=== PATIENT | male | born 1975 | race Caucasian/White ===

== ENCOUNTER 2024-09-15 16:06 | Emergency (ER) | payer MEDICAID ==
[~2024-09-15] VITALS: Ht 177.8 cm; Wt 104.0 kg
[2024-09-15 16:09] VITALS: O2SAT 98
[2024-09-15 16:20] VITALS: BP 152/91; PULSE 77; RESP 16; TEMP 36.5; O2SAT 97
[2024-09-15] MEDS ORDERED: AMOX1TAB16 MT (19:20)
[2024-09-15] MEDS ORDERED: CHLO473M2 MT (19:20)
== END 2024-09-15 20:30 | disposition home or self-care (01) ==
LOC: ER 16:06
DX: K04.7 Periapical abscess without sinus (principal); E78.00 Pure hypercholesterolemia, unspecified; I10 Essential (primary) hypertension; G40.909 Epilepsy, unspecified, not intractable, without status epilepticus; G80.9 Cerebral palsy, unspecified; Z79.899 Other long term (current) drug therapy
CPT/HCPCS: 99283